=== PATIENT | male | born 1985 | race Caucasian/White ===

== ENCOUNTER 2021-05-02 22:46 | Inpatient (IN) | payer OTHER ==
[~2021-05-02] VITALS: Ht 149.9 cm; Wt 75.4 kg
[2021-05-02] MEDS ORDERED: SODIUM CHLORIDE 0.9% 1000ML 1,000 ML IV STA (22:54)
[2021-05-02] MEDS ORDERED: FAMOTIDINE 20 MG/2 ML VIAL IV STA (22:54)
[2021-05-02] MEDS ORDERED: ONDANSETRON HCL INJ 2MG/ML 2ML 2 MG/ML VIAL IV STA (22:54)
[2021-05-02 23:17] LABS: BASOPHILS # (AUTO) 0.1 (0.0-0.1); BASOPHILS % 0.4 % (0.0-1.0); EOSINOPHILS # (AUTO) 1.1 (0.0-0.4); HEMATOCRIT 50.5 % (38.2-49.6); HEMOGLOBIN 17.3 g/dL (14.0-18.0); LYMPHOCYTES # (AUTO) 1.3 (1.0-3.2); LYMPHOCYTES % 5.9 % (18.0-39.1); MEAN CORPUSCULAR HEMOGLOBIN 32.6 pg (28-32); MEAN CORPUSCULAR HGB CONC 34.3 g/dL (31-35); MEAN CORPUSCULAR VOLUME 95.3 fL (81-99); MONOCYTES # (AUTO) 1.6 (0.2-0.8); MONOCYTES % 7.4 % (4.4-11.3); NEUTROPHILS # (AUTO) 17.6 (2.1-6.9); NEUTROPHILS % 80.8 % (38.7-80.0); PLATELET COUNT 239 x10e3/uL (140-360)
[2021-05-02 23:19] LABS: CLARITY,URINE SL CLOUDY (CLEAR); COLOR,URINE AMBER (YELLOW); KETONES,URINE 2+ (NEGATIVE); LEUKOCYTE ESTERASE ,URINE NEGATIVE (NEGATIVE); NITRITE,URINE POSITIVE (NEGATIVE); PROTEIN,URINE DIPSTICK 2+ (NEGATIVE); URINE UROBILINOGEN 0.2 mg/dL (0.2 - 1)
[2021-05-02 23:25] LABS: BACTERIA,URINE FEW /HPF; EPITHELIAL CELLS,URINE RARE /LPF; RBC,URINE 0-5 /HPF (0-5); WBC,URINE (MAN) 0-5 /HPF (0-5)
[2021-05-02 23:26] LABS: MUCUS,URINE MANY (RARE)
[2021-05-02 23:37] LABS: ALBUMIN 4.4 g/dL (3.5-5.0); ALBUMIN/GLOBULIN RATIO 0.9 (0.8-2.0); ANION GAP 19.1 mmol/L (8-16); CALCIUM 9.8 mg/dL (8.4-10.2); CREATININE, SERUM 1.18 mg/dL (0.72-1.25); POTASSIUM 4.1 mmol/L (3.5-5.1)
[2021-05-03] VITALS (9 sets, daily range): BP systolic 141–159; BP diastolic 87–108
[2021-05-03] MEDS ORDERED: IOPAMIDOL 370 MG/ML 200 ML INFUS..BTL INJ ONE (00:18)
[2021-05-03] MEDS ORDERED: SODIUM CHLORIDE 0.9% 50ML 50 ML ONE (00:18)
[2021-05-03] MEDS ORDERED: SODIUM CHLORIDE 0.9% 1000ML 1,000 ML ONE (00:28)
[2021-05-03] MEDS: PIPERACILLIN/TAZOBACTAM 3.375 GM in SODIUM CHLORIDE 0.9% 50ML 50 ML IV SCH ×4 (00:32→18:43)
[2021-05-03] MEDS ORDERED: ACETAMINOPHEN 325 MG TAB PO STA (00:42)
[2021-05-03] MEDS ORDERED: ACETAMINOPHEN 325 MG TAB ONE (00:57)
[2021-05-03] MEDS ORDERED: Morphine 4mg Syringe 4 MG/ML INJ IV PRN (01:30)
[2021-05-03] MEDS ORDERED: HYDRALAZINE HCL 20 MG/ML VIAL IV ONE (03:15)
[2021-05-03] MEDS: SODIUM CHLORIDE 0.9% 1000ML 1,000 ML IV SCH ×3 (05:20→18:43)
[2021-05-03] MEDS: HYDRALAZINE HCL 10 MG TAB PO PRN (08:31)
[2021-05-03] MEDS: ACETAMINOPHEN 325 MG TAB PO PRN (08:32)
[2021-05-03] MEDS: LISINOPRIL 10 MG TAB PO SCH (12:17)
[2021-05-03] MEDS ORDERED: HYDROMORPHONE 1MG/1ML INJ IV PRN (14:00)
[2021-05-03] MEDS: ENOXAPARIN SOD INJ 40 MG/0.4 ML SYR SC SCH (18:43)
[2021-05-03] MEDS: HYDROMORPHONE 1MG/1ML INJ IV PRN (20:04)
[2021-05-04] VITALS: BP 147/107
[2021-05-04] MEDS: PIPERACILLIN/TAZOBACTAM 3.375 GM in SODIUM CHLORIDE 0.9% 50ML 50 ML IV SCH ×5 (00:05→23:07)
[2021-05-04] MEDS: HYDROMORPHONE 1MG/1ML INJ IV PRN ×2 (01:10→15:20)
[2021-05-04] MEDS: HYDRALAZINE HCL 10 MG TAB PO PRN ×2 (01:30→15:45)
[2021-05-04] MEDS: SODIUM CHLORIDE 0.9% 1000ML 1,000 ML IV SCH ×2 (04:13→17:30)
[2021-05-04 05:44] VITALS: BP 150/108
[2021-05-04 06:00] LABS: BASOPHILS # (AUTO) 0.1 (0.0-0.1); BASOPHILS % 0.3 % (0.0-1.0); EOSINOPHILS # (AUTO) 0.1 (0.0-0.4); EOSINOPHILS % 0.4 % (0.0-6.0); HEMATOCRIT 43.5 % (38.2-49.6); HEMOGLOBIN 14.6 g/dL (14.0-18.0); LYMPHOCYTES # (AUTO) 1.5 (1.0-3.2); MEAN CORPUSCULAR HEMOGLOBIN 32.7 pg (28-32); MEAN CORPUSCULAR HGB CONC 33.6 g/dL (31-35); MEAN CORPUSCULAR VOLUME 97.5 fL (81-99); MONOCYTES # (AUTO) 1.2 (0.2-0.8); MONOCYTES % 6.1 % (4.4-11.3); NEUTROPHILS # (AUTO) 16.1 (2.1-6.9); NEUTROPHILS % 84.7 % (38.7-80.0); PLATELET COUNT 181 x10e3/uL (140-360); RED BLOOD COUNT 4.46 x10e6/uL (4.3-5.7); RED CELL DISTRIBUTION WIDTH 13.2 % (11.7-14.4)
[2021-05-04 06:31] LABS: ALBUMIN 3.3 g/dL (3.5-5.0); ALBUMIN/GLOBULIN RATIO 0.8 (0.8-2.0); ANION GAP 16.8 mmol/L (8-16); CALCIUM 8.6 mg/dL (8.4-10.2); CREATININE, SERUM 0.89 mg/dL (0.72-1.25); POTASSIUM 3.8 mmol/L (3.5-5.1)
[2021-05-04 07:55] VITALS: BP 147/108
[2021-05-04] MEDS: LISINOPRIL 10 MG TAB PO SCH (09:08)
[2021-05-04] MEDS: ONDANSETRON HCL INJ 2MG/ML 2ML 2 MG/ML VIAL IV PRN (15:20)
[2021-05-04] MEDS ORDERED: LISINOPRIL 10 MG TAB PO NR (16:00)
[2021-05-04] MEDS: ENOXAPARIN SOD INJ 40 MG/0.4 ML SYR SC SCH (17:08)
[2021-05-04 20:26] VITALS: BP 132/95
[2021-05-04 21:00] VITALS: BP 132/95
[2021-05-05] VITALS: BP 143/103
[2021-05-05] MEDS: SODIUM CHLORIDE 0.9% 1000ML 1,000 ML IV SCH ×2 (01:32→11:41)
[2021-05-05] MEDS: PIPERACILLIN/TAZOBACTAM 3.375 GM in SODIUM CHLORIDE 0.9% 50ML 50 ML IV SCH ×3 (06:47→17:26)
[2021-05-05] MEDS: METRONIDAZOLE 500MG/NS 100ML 100 ML IV SCH ×3 (06:47→18:20)
[2021-05-05 07:57] VITALS: BP 156/105
[2021-05-05] MEDS: LISINOPRIL 10 MG TAB PO SCH (09:11)
[2021-05-05 09:17] LABS: BASOPHILS % 0.2 % (0.0-1.0); EOSINOPHILS % 0.1 % (0.0-6.0); HEMATOCRIT 42.1 % (38.2-49.6); HEMOGLOBIN 13.9 g/dL (14.0-18.0); LYMPHOCYTES # (AUTO) 1.7 (1.0-3.2); LYMPHOCYTES % 11.7 % (18.0-39.1); MEAN CORPUSCULAR HEMOGLOBIN 32.3 pg (28-32); MEAN CORPUSCULAR VOLUME 97.7 fL (81-99); MONOCYTES # (AUTO) 1.4 (0.2-0.8); MONOCYTES % 9.3 % (4.4-11.3); NEUTROPHILS # (AUTO) 11.4 (2.1-6.9); NEUTROPHILS % 78.2 % (38.7-80.0); PLATELET COUNT 185 x10e3/uL (140-360); RED BLOOD COUNT 4.31 x10e6/uL (4.3-5.7); RED CELL DISTRIBUTION WIDTH 12.7 % (11.7-14.4)
[2021-05-05 09:49] LABS: ALBUMIN 3.1 g/dL (3.5-5.0); ALBUMIN/GLOBULIN RATIO 0.6 (0.8-2.0); ANION GAP 18.9 mmol/L (8-16); CALCIUM 9.1 mg/dL (8.4-10.2); CREATININE, SERUM 0.8 mg/dL (0.72-1.25); POTASSIUM 3.9 mmol/L (3.5-5.1)
[2021-05-05 12:00] VITALS: BP 155/110
[2021-05-05] MEDS: ONDANSETRON HCL INJ 2MG/ML 2ML 2 MG/ML VIAL IV PRN (12:45)
[2021-05-05] MEDS: HYDROMORPHONE 1MG/1ML INJ IV PRN (12:50)
[2021-05-05] MEDS: ENOXAPARIN SOD INJ 40 MG/0.4 ML SYR SC SCH (17:26)
[2021-05-05 20:00] VITALS: BP 166/129
[2021-05-05 20:30] VITALS: BP 166/129
[2021-05-05] MEDS: HYDRALAZINE HCL 10 MG TAB PO PRN (21:04)
[2021-05-06] VITALS (10 sets, daily range): BP systolic 105–168; BP diastolic 77–114
[2021-05-06] MEDS: SODIUM CHLORIDE 0.9% 1000ML 1,000 ML IV SCH ×4 (00:03→16:25)
[2021-05-06] MEDS: METRONIDAZOLE 500MG/NS 100ML 100 ML IV SCH ×4 (00:04→18:25)
[2021-05-06] MEDS: PIPERACILLIN/TAZOBACTAM 3.375 GM in SODIUM CHLORIDE 0.9% 50ML 50 ML IV SCH ×4 (00:04→20:40)
[2021-05-06] MEDS: HYDRALAZINE HCL 10 MG TAB PO PRN ×4 (05:40→21:10)
[2021-05-06 07:11] LABS: ALBUMIN 3.2 g/dL (3.5-5.0); ALBUMIN/GLOBULIN RATIO 0.7 (0.8-2.0); ANION GAP 18.3 mmol/L (8-16); CREATININE, SERUM 0.78 mg/dL (0.72-1.25); POTASSIUM 3.3 mmol/L (3.5-5.1)
[2021-05-06] MEDS: LISINOPRIL 10 MG TAB PO SCH (09:07)
[2021-05-06 09:14] LABS: BASOPHILS % 0.2 % (0.0-1.0); EOSINOPHILS # (AUTO) 0.1 (0.0-0.4); EOSINOPHILS % 0.5 % (0.0-6.0); HEMATOCRIT 44.2 % (38.2-49.6); HEMOGLOBIN 15.1 g/dL (14.0-18.0); LYMPHOCYTES # (AUTO) 1.7 (1.0-3.2); LYMPHOCYTES % 14.9 % (18.0-39.1); MEAN CORPUSCULAR HEMOGLOBIN 32.6 pg (28-32); MEAN CORPUSCULAR HGB CONC 34.2 g/dL (31-35); MEAN CORPUSCULAR VOLUME 95.5 fL (81-99); MONOCYTES # (AUTO) 1.2 (0.2-0.8); MONOCYTES % 10.7 % (4.4-11.3); NEUTROPHILS # (AUTO) 8.4 (2.1-6.9); NEUTROPHILS % 73.3 % (38.7-80.0); PLATELET COUNT 223 x10e3/uL (140-360); RED BLOOD COUNT 4.63 x10e6/uL (4.3-5.7); RED CELL DISTRIBUTION WIDTH 12.6 % (11.7-14.4)
[2021-05-06] MEDS: HYDROMORPHONE 1MG/1ML INJ IV PRN (10:10)
[2021-05-06] MEDS: ENOXAPARIN SOD INJ 40 MG/0.4 ML SYR SC SCH (16:20)
[2021-05-06] MEDS ORDERED: POTASSIUM CHLORIDE 20 MEQ TAB CR PO ONE (16:30)
[2021-05-06] MEDS: ONDANSETRON HCL INJ 2MG/ML 2ML 2 MG/ML VIAL IV PRN (16:51)
[2021-05-07] VITALS (8 sets, daily range): BP systolic 138–162; BP diastolic 103–116
[2021-05-07] MEDS: METRONIDAZOLE 500MG/NS 100ML 100 ML IV SCH ×3 (00:10→12:17)
[2021-05-07] MEDS: PIPERACILLIN/TAZOBACTAM 3.375 GM in SODIUM CHLORIDE 0.9% 50ML 50 ML IV SCH ×4 (02:00→20:52)
[2021-05-07 06:23] LABS: BASOPHILS % 0.4 % (0.0-1.0); EOSINOPHILS # (AUTO) 0.1 (0.0-0.4); EOSINOPHILS % 0.8 % (0.0-6.0); HEMATOCRIT 39.3 % (38.2-49.6); HEMOGLOBIN 13.5 g/dL (14.0-18.0); LYMPHOCYTES # (AUTO) 1.6 (1.0-3.2); LYMPHOCYTES % 16.2 % (18.0-39.1); MEAN CORPUSCULAR HEMOGLOBIN 32.3 pg (28-32); MEAN CORPUSCULAR HGB CONC 34.4 g/dL (31-35); MONOCYTES # (AUTO) 1.4 (0.2-0.8); MONOCYTES % 13.9 % (4.4-11.3); NEUTROPHILS # (AUTO) 6.8 (2.1-6.9); NEUTROPHILS % 68.3 % (38.7-80.0); PLATELET COUNT 230 x10e3/uL (140-360); RED BLOOD COUNT 4.18 x10e6/uL (4.3-5.7); RED CELL DISTRIBUTION WIDTH 12.5 % (11.7-14.4)
[2021-05-07] MEDS: HYDRALAZINE HCL 20 MG/ML VIAL IV PRN (06:39)
[2021-05-07 07:08] LABS: ALBUMIN 2.8 g/dL (3.5-5.0); ALBUMIN/GLOBULIN RATIO 0.7 (0.8-2.0); ANION GAP 16.3 mmol/L (8-16); CALCIUM 8.2 mg/dL (8.4-10.2); CREATININE, SERUM 0.76 mg/dL (0.72-1.25); POTASSIUM 3.3 mmol/L (3.5-5.1)
[2021-05-07] MEDS: LOSARTAN POTASSIUM 100 MG TAB PO SCH (08:15)
[2021-05-07] MEDS: HYDROMORPHONE 1MG/1ML INJ IV PRN ×2 (09:34→15:30)
[2021-05-07] MEDS: ONDANSETRON HCL INJ 2MG/ML 2ML 2 MG/ML VIAL IV PRN (10:22)
[2021-05-07] MEDS: SODIUM CHLORIDE 0.9% 1000ML 1,000 ML IV SCH ×3 (10:22→20:53)
[2021-05-07] MEDS ORDERED: POTASSIUM CHLORIDE 20 MEQ TAB CR PO STA (12:32)
[2021-05-07] MEDS: ENOXAPARIN SOD INJ 40 MG/0.4 ML SYR SC SCH (17:42)
[2021-05-07] MEDS: METRONIDAZOLE 500 MG TAB PO SCH ×2 (17:42→23:28)
[2021-05-08] VITALS (8 sets, daily range): BP systolic 138–177; BP diastolic 102–118
[2021-05-08] MEDS: HYDRALAZINE HCL 20 MG/ML VIAL IV PRN (00:50)
[2021-05-08] MEDS: PIPERACILLIN/TAZOBACTAM 3.375 GM in SODIUM CHLORIDE 0.9% 50ML 50 ML IV SCH ×5 (02:19→20:07)
[2021-05-08] MEDS: ACETAMINOPHEN 325 MG TAB PO PRN (03:37)
[2021-05-08] MEDS: ONDANSETRON HCL INJ 2MG/ML 2ML 2 MG/ML VIAL IV PRN ×2 (03:37→08:49)
[2021-05-08] MEDS: METRONIDAZOLE 500 MG TAB PO SCH ×4 (05:44→23:34)
[2021-05-08 06:09] LABS: BASOPHILS % 0.3 % (0.0-1.0); EOSINOPHILS % 0.2 % (0.0-6.0); HEMATOCRIT 45.1 % (38.2-49.6); HEMOGLOBIN 15.3 g/dL (14.0-18.0); LYMPHOCYTES # (AUTO) 1.4 (1.0-3.2); LYMPHOCYTES % 12.4 % (18.0-39.1); MEAN CORPUSCULAR HEMOGLOBIN 32.6 pg (28-32); MEAN CORPUSCULAR HGB CONC 33.9 g/dL (31-35); MONOCYTES # (AUTO) 1.3 (0.2-0.8); MONOCYTES % 11.1 % (4.4-11.3); NEUTROPHILS # (AUTO) 8.7 (2.1-6.9); NEUTROPHILS % 75.5 % (38.7-80.0); PLATELET COUNT 274 x10e3/uL (140-360); RED CELL DISTRIBUTION WIDTH 12.7 % (11.7-14.4)
[2021-05-08 06:15] LABS: ANION GAP 19.6 mmol/L (8-16); CREATININE, SERUM 0.73 mg/dL (0.72-1.25); MAGNESIUM 2.6 MG/DL (1.3-2.1); POTASSIUM 3.6 mmol/L (3.5-5.1)
[2021-05-08] MEDS: LOSARTAN POTASSIUM 100 MG TAB PO SCH (08:43)
[2021-05-08] MEDS: HYDROCHLOROTHIAZIDE 25 MG TAB PO SCH (08:49)
[2021-05-08] MEDS: SODIUM CHLORIDE 0.9% 1000ML 1,000 ML IV SCH ×2 (11:36→23:34)
[2021-05-08] MEDS: ENOXAPARIN SOD INJ 40 MG/0.4 ML SYR SC SCH (16:20)
[2021-05-09] MEDS: HYDRALAZINE HCL 20 MG/ML VIAL IV PRN (00:12)
[2021-05-09 00:19] VITALS: BP 160/114
[2021-05-09] MEDS: PIPERACILLIN/TAZOBACTAM 3.375 GM in SODIUM CHLORIDE 0.9% 50ML 50 ML IV SCH ×3 (01:49→14:00)
[2021-05-09] MEDS: ACETAMINOPHEN 325 MG TAB PO PRN (01:55)
[2021-05-09 04:30] VITALS: BP 144/101
[2021-05-09] MEDS: METRONIDAZOLE 500 MG TAB PO SCH ×2 (05:42→12:12)
[2021-05-09 05:45] LABS: BASOPHILS # (AUTO) 0.1 (0.0-0.1); BASOPHILS % 0.6 % (0.0-1.0); EOSINOPHILS % 0.2 % (0.0-6.0); HEMATOCRIT 42.5 % (38.2-49.6); HEMOGLOBIN 14.5 g/dL (14.0-18.0); LYMPHOCYTES # (AUTO) 1.4 (1.0-3.2); LYMPHOCYTES % 13.1 % (18.0-39.1); MEAN CORPUSCULAR HEMOGLOBIN 32.4 pg (28-32); MEAN CORPUSCULAR HGB CONC 34.1 g/dL (31-35); MEAN CORPUSCULAR VOLUME 94.9 fL (81-99); MONOCYTES # (AUTO) 1.2 (0.2-0.8); MONOCYTES % 11.5 % (4.4-11.3); PLATELET COUNT 307 x10e3/uL (140-360); RED BLOOD COUNT 4.48 x10e6/uL (4.3-5.7)
[2021-05-09 06:03] LABS: ANION GAP 16.4 mmol/L (8-16); CALCIUM 8.9 mg/dL (8.4-10.2); CREATININE, SERUM 0.78 mg/dL (0.72-1.25); POTASSIUM 3.4 mmol/L (3.5-5.1)
[2021-05-09 08:00] LABS: LYMPHOCYTES % (MANUAL) 7 % (19-48); MONOCYTES % (MANUAL) 11 % (3.4-9.0); NEUTROPHILS % (MANUAL) 82 % (40-74); PLATELET ESTIMATE ADEQUATE; PLATELET MORPHOLOGY COMMENT NORMAL; RBC MORPHOLOGY COMMENT NORMAL
[2021-05-09] MEDS: LOSARTAN POTASSIUM 100 MG TAB PO SCH (08:18)
[2021-05-09] MEDS: HYDROCHLOROTHIAZIDE 25 MG TAB PO SCH (08:18)
[2021-05-09 08:21] VITALS: BP 152/106
[2021-05-09] MEDS: ONDANSETRON HCL INJ 2MG/ML 2ML 2 MG/ML VIAL IV PRN ×2 (08:36→13:06)
[2021-05-09 09:13] VITALS: BP 152/106
[2021-05-09 11:38] VITALS: BP 150/113
[2021-05-09] MEDS: SODIUM CHLORIDE 0.9% 1000ML 1,000 ML IV SCH (12:12)
[2021-05-09] MEDS ORDERED: COZAAR100 MG PO (12:38)
[2021-05-09] MEDS ORDERED: CIPRO500 MG PO (12:38)
[2021-05-09] MEDS ORDERED: ESIDRIX25 MG PO (12:38)
[2021-05-09] MEDS ORDERED: METRONIDAZOLE500 MG PO (12:38)
[2021-05-09] MEDS ORDERED: POTASSIUM CHLORIDE 20 MEQ TAB CR PO ONE (13:00)
[2021-05-09 16:00] VITALS: BP 144/115
== END 2021-05-09 15:16 | disposition home or self-care (01) | DRG 392 ==
LOC: ER 22:51 → ERHOLD 05-03 02:23 → MED/SURG3 05-03 02:26 → OBSVTOIN 05-04 10:46
PROVIDERS: ADMIT Internal Medicine; ATTEND Internal Medicine
DX: K57.32 Diverticulitis of large intestine without perforation or abscess without bleeding (principal); I10 Essential (primary) hypertension; Z20.822 Contact with and (suspected) exposure to COVID-19
CPT/HCPCS: 36415; 74177; 80048; 80053; 81001; 82948; 83605; 83690; 83735; 85025; 87040; 99283; G0378; J0360; J1170; J1650; J2270; J2405; J2543; J7030; Q9967; U0002

== ENCOUNTER → 2021-07-01 | Day surgery (SDC) | payer OTHER ==
[~2021-07-01] MED LIST: AMLODIPINE BESYL5 MG PO; CIPRO500 MG PO; COZAAR100 MG PO; ESIDRIX25 MG PO; FENTANYL CITRATE/PF 100MCG/2 ML INJ ONE; GLUCAGON FOR INJ 1 MG VIAL ONE; LIDOCAINE HCL 2% LOCAL INJ 5 ML SDV VIAL INJ ONE; METOCLOPRAMIDE HCL 10 MG/2ML VIAL ONE; METRONIDAZOLE500 MG PO; MIDAZOLAM HCL 2 MG/2 ML VIAL ONE; OMEPRAZOLE40 MG PO; PROPOFOL IV EMULSION 10 MG/ML 20 ML VIAL ONE; SIMETHICONE 40 MG/0.6 ML BTL ONE
[2021-07-01 15:35] VITALS: BP 111/85
== END | disposition home or self-care (01) ==
LOC: OR 12:57
PROVIDERS: ATTEND Internal Medicine Gastroenterology
DX: K52.9 Noninfective gastroenteritis and colitis, unspecified (principal); D12.3 Benign neoplasm of transverse colon; K31.7 Polyp of stomach and duodenum; K29.70 Gastritis, unspecified, without bleeding; K22.89 Other specified disease of esophagus; K20.90 Esophagitis, unspecified without bleeding; K21.9 Gastro-esophageal reflux disease without esophagitis; K44.9 Diaphragmatic hernia without obstruction or gangrene; K57.30 Diverticulosis of large intestine without perforation or abscess without bleeding; K64.8 Other hemorrhoids; Z87.19 Personal history of other diseases of the digestive system; G47.33 Obstructive sleep apnea (adult) (pediatric); R25.1 Tremor, unspecified; I10 Essential (primary) hypertension; M27.9 Disease of jaws, unspecified; Z01.810 Encounter for preprocedural cardiovascular examination; Z01.812 Encounter for preprocedural laboratory examination; Z20.822 Contact with and (suspected) exposure to COVID-19; Z79.899 Other long term (current) drug therapy; Z68.25 Body mass index [BMI] 25.0-25.9, adult; Z80.0 Family history of malignant neoplasm of digestive organs
CPT/HCPCS: 43239; 45380; 93005; C9113; J1610; J2001; J2250; J2704; J2765; J3010; U0002; 45378

== ENCOUNTER 2022-12-28 18:51 | Inpatient (IN) | payer BC, OTHER ==
[~2022-12-28] VITALS: Ht 271.8 cm; Wt 75.3 kg
[~2022-12-28 18:51] MED LIST changes: -FENTANYL CITRATE/PF 100MCG/2 ML INJ ONE; -GLUCAGON FOR INJ 1 MG VIAL ONE; -LIDOCAINE HCL 2% LOCAL INJ 5 ML SDV VIAL INJ ONE; -METOCLOPRAMIDE HCL 10 MG/2ML VIAL ONE; -MIDAZOLAM HCL 2 MG/2 ML VIAL ONE; -PROPOFOL IV EMULSION 10 MG/ML 20 ML VIAL ONE; -SIMETHICONE 40 MG/0.6 ML BTL ONE
[2022-12-28] MEDS ORDERED: ONDANSETRON HCL INJ 2MG/ML 2ML 2 MG/ML VIAL IV STA (19:07)
[2022-12-28] MEDS ORDERED: DICYCLOMINE HCL 20 MG/2 ML VIAL IM ONE ×2 (19:09→19:15)
[2022-12-28] MEDS ORDERED: SODIUM CHLORIDE 0.9% 1000ML 1,000 ML ONE ×2 (19:09→21:54)
[2022-12-28 19:14] LABS: BASOPHILS # (AUTO) 0.1 (0.0-0.1); BASOPHILS % 0.7 % (0.0-1.0); EOSINOPHILS % 0.1 % (0.0-6.0); HEMATOCRIT 48.8 % (38.2-49.6); HEMOGLOBIN 17.5 g/dL (14.0-18.0); LYMPHOCYTES # (AUTO) 1.3 (1.0-3.2); LYMPHOCYTES % 12.5 % (18.0-39.1); MEAN CORPUSCULAR HEMOGLOBIN 34.2 pg (28-32); MEAN CORPUSCULAR HGB CONC 35.9 g/dL (31-35); MEAN CORPUSCULAR VOLUME 95.5 fL (81-99); MONOCYTES % 9.3 % (4.4-11.3); NEUTROPHILS % 76.9 % (38.7-80.0); PLATELET COUNT 145 x10e3/uL (140-360); RED BLOOD COUNT 5.11 x10e6/uL (4.3-5.7)
[2022-12-28] MEDS ORDERED: SODIUM CHLORIDE 0.9% 1000ML 1,000 ML IV ONE ×2 (19:15→20:00)
[2022-12-28 19:30] LABS: ALBUMIN 4.4 g/dL (3.5-5.0); CALCIUM 10.4 mg/dL (8.4-10.2); CREATININE, SERUM 0.92 mg/dL (0.72-1.25)
[2022-12-28 19:42] LABS: ANION GAP 30.5 mmol/L (8-16); POTASSIUM 4.5 mmol/L (3.5-5.1)
[2022-12-28] MEDS ORDERED: IOPAMIDOL 370 MG/ML 100 ML INFUS..BTL INJ ONE (19:47)
[2022-12-28] MEDS ORDERED: Morphine 4mg INJECTION 4 MG/ML INJ IV ONE (20:00)
[2022-12-28] MEDS ORDERED: HALOPERIDOL LACTATE 5 MG/ML VIAL ONE (20:07)
[2022-12-28] MEDS ORDERED: HALOPERIDOL LACTATE 5 MG/ML VIAL INJ ONE (20:15)
[2022-12-28 20:21] LABS: CHOL/HDL RATIO 3.2 (3.9-4.7)
[2022-12-28] MEDS ORDERED: HALOPERIDOL LACTATE 5 MG/ML VIAL IV ONE (20:30)
[2022-12-28] MEDS: SODIUM CHLORIDE 0.9% 1000ML 1,000 ML IV SCH (22:07)
[2022-12-28] MEDS ORDERED: LORAZEPAM INJ 2 MG/ML VIAL IV ONE (22:15)
[2022-12-28] MEDS ORDERED: LORAZEPAM INJ 2 MG/ML VIAL IV PRN (22:15)
[2022-12-28 22:39] VITALS: BP 151/109; PULSE 55; RESP 19; TEMP 97.5; O2SAT 98
[2022-12-28 22:40] VITALS: BP 151/109; PULSE 55; RESP 19; TEMP 97.5; O2SAT 98
[2022-12-28] MEDS ORDERED: TRAZODONE HCL50 MG PO (22:50)
[2022-12-29] MEDS: TRAZODONE HCL 50 MG TAB PO SCH ×2 (00:13→20:58)
[2022-12-29] MEDS: Morphine 4mg INJECTION 4 MG/ML INJ IV PRN ×5 (00:13→23:50)
[2022-12-29] MEDS: ONDANSETRON HCL INJ 2MG/ML 2ML 2 MG/ML VIAL IV PRN ×5 (00:13→23:50)
[2022-12-29] MEDS: SODIUM CHLORIDE 0.9% 1000ML 1,000 ML IV SCH ×4 (03:00→16:58)
[2022-12-29] MEDS: HYDRALAZINE HCL 20 MG/ML VIAL IV PRN ×2 (03:50→17:35)
[2022-12-29 04:20] VITALS: BP 152/70; PULSE 90; RESP 18; TEMP 98.6; O2SAT 98
[2022-12-29 05:19] LABS: BASOPHILS % 0.2 % (0.0-1.0); EOSINOPHILS % 0.1 % (0.0-6.0); HEMOGLOBIN 15.6 g/dL (14.0-18.0); LYMPHOCYTES # (AUTO) 0.8 (1.0-3.2); MEAN CORPUSCULAR HEMOGLOBIN 33.8 pg (28-32); MEAN CORPUSCULAR HGB CONC 33.9 g/dL (31-35); MEAN CORPUSCULAR VOLUME 99.8 fL (81-99); MONOCYTES # (AUTO) 0.8 (0.2-0.8); MONOCYTES % 8.7 % (4.4-11.3); NEUTROPHILS # (AUTO) 7.3 (2.1-6.9); NEUTROPHILS % 81.4 % (38.7-80.0); PLATELET COUNT 111 x10e3/uL (140-360); RED BLOOD COUNT 4.61 x10e6/uL (4.3-5.7); RED CELL DISTRIBUTION WIDTH 13.1 % (11.7-14.4)
[2022-12-29 05:50] LABS: ALBUMIN 3.9 g/dL (3.5-5.0); ANION GAP 30.7 mmol/L (8-16); CALCIUM 8.7 mg/dL (8.4-10.2); CREATININE, SERUM 0.94 mg/dL (0.72-1.25); POTASSIUM 4.7 mmol/L (3.5-5.1)
[2022-12-29] MEDS: AMLODIPINE BESYLATE 5 MG TAB PO SCH (07:47)
[2022-12-29] MEDS ORDERED: LORAZEPAM INJ 2 MG/ML VIAL IV PRN (08:45)
[2022-12-29 09:37] VITALS: BP 152/70; PULSE 90; RESP 18; TEMP 98.6; O2SAT 98
[2022-12-29] MEDS: CHLORDIAZEPOXIDE HCL 10 MG CAP PO SCH ×3 (09:53→20:58)
[2022-12-29 16:00] VITALS: BP 152/110; PULSE 109; RESP 21; TEMP 99; O2SAT 98
[2022-12-29 20:00] VITALS: BP 137/103; PULSE 105; RESP 17; TEMP 98.2; O2SAT 95
[2022-12-29] MEDS: LACTATED RINGER'S 1,000 ML INJ SCH (23:50)
[2022-12-30] VITALS (7 sets, daily range): BP systolic 137–148; BP diastolic 103–106; PULSE 66–107; RESP 17–20; TEMP 98.3–99.7; O2SAT 95–99
[2022-12-30] MEDS: LACTATED RINGER'S 1,000 ML INJ SCH ×3 (03:14→19:09)
[2022-12-30 05:58] LABS: ALBUMIN 3.3 g/dL (3.5-5.0); ANION GAP 18.4 mmol/L (8-16); CALCIUM 8.6 mg/dL (8.4-10.2); CREATININE, SERUM 0.76 mg/dL (0.72-1.25); MAGNESIUM 1.2 MG/DL (1.3-2.1); PHOSPHORUS 1.6 MG/DL (2.3-4.7); POTASSIUM 3.4 mmol/L (3.5-5.1)
[2022-12-30] MEDS: ONDANSETRON HCL INJ 2MG/ML 2ML 2 MG/ML VIAL IV PRN ×2 (09:49→17:20)
[2022-12-30] MEDS: Morphine 4mg INJECTION 4 MG/ML INJ IV PRN ×3 (09:52→23:45)
[2022-12-30] MEDS: CHLORDIAZEPOXIDE HCL 10 MG CAP PO SCH ×3 (09:54→21:22)
[2022-12-30] MEDS: AMLODIPINE BESYLATE 5 MG TAB PO SCH (09:55)
[2022-12-30] MEDS: TRAZODONE HCL 50 MG TAB PO SCH (21:22)
[2022-12-30] MEDS ORDERED: BISACODYL 10 MG SUPP PR ONE (23:30)
[2022-12-31] VITALS (9 sets, daily range): BP systolic 108–145; BP diastolic 87–112; PULSE 86–98; RESP 15–19; TEMP 97.5–99.8; O2SAT 96–99
[2022-12-31 05:09] LABS: BASOPHILS % 0.2 % (0.0-1.0); EOSINOPHILS % 0.1 % (0.0-6.0); HEMOGLOBIN 14.2 g/dL (14.0-18.0); LYMPHOCYTES # (AUTO) 1.1 (1.0-3.2); MEAN CORPUSCULAR HEMOGLOBIN 33.9 pg (28-32); MEAN CORPUSCULAR HGB CONC 34.6 g/dL (31-35); MEAN CORPUSCULAR VOLUME 97.9 fL (81-99); MONOCYTES # (AUTO) 1.2 (0.2-0.8); MONOCYTES % 10.6 % (4.4-11.3); NEUTROPHILS % 78.8 % (38.7-80.0); PLATELET COUNT 87 x10e3/uL (140-360); RED BLOOD COUNT 4.19 x10e6/uL (4.3-5.7); RED CELL DISTRIBUTION WIDTH 13.1 % (11.7-14.4)
[2022-12-31 05:30] LABS: ALBUMIN/GLOBULIN RATIO 0.8 (0.8-2.0); ANION GAP 18.9 mmol/L (8-16); CALCIUM 8.8 mg/dL (8.4-10.2); CREATININE, SERUM 0.69 mg/dL (0.72-1.25); POTASSIUM 2.9 mmol/L (3.5-5.1)
[2022-12-31] MEDS ORDERED: METOPROLOL TARTRATE 50 MG TAB PO SCH ×2 (09:00→21:00)
[2022-12-31] MEDS ORDERED: POTASSIUM PHOSPHATE 20 MM in SODIUM CHLORIDE 0.9% 250ML 250 ML IV ONE (09:00)
[2022-12-31] MEDS: CHLORDIAZEPOXIDE HCL 10 MG CAP PO SCH ×3 (09:32→21:07)
[2022-12-31] MEDS: AMLODIPINE BESYLATE 5 MG TAB PO SCH (09:32)
[2022-12-31] MEDS: MAGNESIUM SULFATE 2GM/50ML 50 ML IV SCH ×2 (09:52→11:45)
[2022-12-31] MEDS: ONDANSETRON HCL INJ 2MG/ML 2ML 2 MG/ML VIAL IV PRN (09:54)
[2022-12-31] MEDS: POTASSIUM CHLORIDE 10MEQ EA PO SCH ×2 (09:54→11:42)
[2022-12-31] MEDS ORDERED: MAGNESIUM SULFATE 2GM/50ML IV SCH (10:00)
[2022-12-31] MEDS: KCL 40MEQ/0.9% SOD CHL 1,000 ML IV SCH ×2 (11:44→19:00)
[2022-12-31] MEDS: METOPROLOL TARTRATE 50 MG TAB PO SCH ×2 (13:00→21:08)
[2022-12-31] MEDS: Morphine 4mg INJECTION 4 MG/ML INJ IV PRN (18:23)
[2022-12-31] MEDS: TRAZODONE HCL 50 MG TAB PO SCH (21:08)
[2023-01-01] MEDS: TRAZODONE HCL 50 MG TAB PO SCH (00:21)
[2023-01-01 01:33] VITALS: BP 108/94; PULSE 73; RESP 18; TEMP 97.7; O2SAT 99
[2023-01-01] MEDS: KCL 40MEQ/0.9% SOD CHL 1,000 ML IV SCH ×2 (05:00→05:36)
[2023-01-01 05:35] LABS: BASOPHILS # (AUTO) 0.1 (0.0-0.1); BASOPHILS % 0.5 % (0.0-1.0); EOSINOPHILS % 0.4 % (0.0-6.0); HEMATOCRIT 40.2 % (38.2-49.6); HEMOGLOBIN 13.7 g/dL (14.0-18.0); LYMPHOCYTES % 9.8 % (18.0-39.1); MEAN CORPUSCULAR HEMOGLOBIN 34.2 pg (28-32); MEAN CORPUSCULAR HGB CONC 34.1 g/dL (31-35); MEAN CORPUSCULAR VOLUME 100.2 fL (81-99); MONOCYTES # (AUTO) 1.5 (0.2-0.8); MONOCYTES % 15.2 % (4.4-11.3); NEUTROPHILS # (AUTO) 7.4 (2.1-6.9); NEUTROPHILS % 73.7 % (38.7-80.0); PLATELET COUNT 106 x10e3/uL (140-360); RED BLOOD COUNT 4.01 x10e6/uL (4.3-5.7); RED CELL DISTRIBUTION WIDTH 12.8 % (11.7-14.4)
[2023-01-01 05:43] VITALS: BP 129/101; PULSE 82; RESP 16; TEMP 98.2; O2SAT 100
[2023-01-01 06:05] LABS: ALBUMIN 2.7 g/dL (3.5-5.0); ALBUMIN/GLOBULIN RATIO 0.8 (0.8-2.0); ANION GAP 17.6 mmol/L (8-16); CALCIUM 8.1 mg/dL (8.4-10.2); CREATININE, SERUM 0.64 mg/dL (0.72-1.25); PHOSPHORUS 1.4 MG/DL (2.3-4.7); POTASSIUM 3.6 mmol/L (3.5-5.1)
[2023-01-01] MEDS: Morphine 4mg INJECTION 4 MG/ML INJ IV PRN (08:25)
[2023-01-01] MEDS: CHLORDIAZEPOXIDE HCL 10 MG CAP PO SCH (08:25)
[2023-01-01] MEDS: ONDANSETRON HCL INJ 2MG/ML 2ML 2 MG/ML VIAL IV PRN (08:25)
[2023-01-01] MEDS: AMLODIPINE BESYLATE 5 MG TAB PO SCH (08:25)
[2023-01-01] MEDS: METOPROLOL TARTRATE 50 MG TAB PO SCH (08:26)
[2023-01-01 08:44] VITALS: BP 124/102; PULSE 80; RESP 18; TEMP 98.4; O2SAT 98
[2023-01-01 10:10] VITALS: BP 124/102; PULSE 80; RESP 18; TEMP 98.4; O2SAT 98
[2023-01-01] MEDS ORDERED: MAGNESIUM HYDROXIDE 30 ML UDC PO ONE (10:30)
== END 2023-01-01 11:18 | disposition home or self-care (01) | DRG 439 ==
LOC: ER 18:56 → ERHOLD 21:56 → MED/SURG 22:35
PROVIDERS: ADMIT Internal Medicine; ATTEND Internal Medicine
DX: K85.20 Alcohol induced acute pancreatitis without necrosis or infection (principal); F10.239 Alcohol dependence with withdrawal, unspecified; F10.288 Alcohol dependence with other alcohol-induced disorder; K86.0 Alcohol-induced chronic pancreatitis; E78.5 Hyperlipidemia, unspecified; K76.0 Fatty (change of) liver, not elsewhere classified; T51.0X1A Toxic effect of ethanol, accidental (unintentional), initial encounter; G47.33 Obstructive sleep apnea (adult) (pediatric); F41.9 Anxiety disorder, unspecified; Z20.822 Contact with and (suspected) exposure to COVID-19; Z86.010 Personal history of colon polyps
CPT/HCPCS: 36415; 74177; 80053; 80061; 82150; 83690; 83735; 84100; 85025; 96360; 99284; J1630; J2060; J2270; J2405; J2543; J3475; J7030; J7050; Q9967